=== PATIENT | female | born 1995 | race Caucasian/White ===

== ENCOUNTER 2018-05-17 15:59 | Outpatient (CLI) | END 2018-05-17 16:00 | disposition home or self-care (01) | LOC: RHC-LAB 15:59 | PROVIDERS: ATTEND Nurse Practitioner Family | DX: J02.9 Acute pharyngitis, unspecified (principal) | CPT/HCPCS: 87651 ==

== ENCOUNTER 2018-11-30 11:27 | Emergency (ER) | payer OTHER ==
[2018-11-30 11:31] VITALS: BP 148/87; TEMP 98.7; BMI 40.4
--- NOTE | 2018-11-30 11:54 | ED.PDOC ---
General ED Provider: Dr. ROSANNA TRIPP Chief Complaint: Eye Problem Stated Complaint: face rash, hand rash Time Seen by Physician: 11:33 (see photos exposed to poision osiris) Mode of Arrival: Walk-In Information Source: Patient Exam Limitations: No limitations Nursing and Triage Documentation Reviewed and Agree: Yes Does patient meet sepsis criteria?: No System Inflammatory Response Syndrome: Not Applicable Sepsis Protocol: For patient's 13 years and over: Temp is 96.8 and below OR 101 and greater Pulse >90 BPM Resp >20/minute Acutely Altered Mental Status Are patient's symptoms suggestive of a new infection, such as: -Pneumonia -Skin, Soft Tissue -Endocarditis -UTI -Bone, Joint Infection -Implantable Device -Acute Abdominal Infection -Wound Infection -Meningitis -Blood Stream Catheter Infection -Unknown Skin Complaint Exam - Skin Rash/Itching Complaint/Exam Onset/Duration: facial rash edema and rash bilateral hand after exposure to poision osiris Symptoms Are: Still present Initial Severity: Mild Location: seephotos Potential Exposures: Reports: Plants Prior Treatment: benadryl at home Aggravating: Reports: None Alleviating: Reports: None Associated Signs and Symptoms: Denies: Difficulty breathing, Fever, Chills Skin Findings: Present: Maculae Differential Diagnoses: Allergic Reaction, Contact Dermatitis, Poison Osiris/[place] Review of Systems - Review Of Systems Constitutional: Reports: No symptoms Eyes: Reports: No symptoms Ears, Nose, Mouth, Throat: Reports: No symptoms Respiratory: Reports: No symptoms Cardiac: Reports: No symptoms GI: Reports: No symptoms : Reports: No symptoms Musculoskeletal: Reports: No symptoms Skin: Reports: Rash (face hand see photos) Neurological: Reports: No symptoms Endocrine: Reports: No symptoms Hematologic/Lymphatic: Reports: No symptoms All Other Systems: Reviewed and Negative Past Medical History - Past Medical History Previously Healthy: Yes Endocrine: Reports: None Cardiovascular: Reports: None Respiratory: Reports: None Hematological: Reports: None Gastrointestinal: Reports: None Genitourinary: Reports: None Neuro/Psych: Reports: None Musculoskeletal: Reports: None Cancer: Reports: None Last Menstrual Period: 2 weeks ago - Surgical History General Surgical History: Reports: None - Family History Family History: Reports: None - Social History Smoking Status: Current every day smoker Hx Substance Use: No Alcohol Screening: None Physical Exam - Physical Exam Appearance: Well-appearing, No pain distress, Well-nourished Eyes: SHREE, EOMI, Conjunctiva clear ENT: Ears normal, Nose normal, Oropharynx normal Respiratory: Airway patent, Breath sounds clear, Breath sounds equal, Respirations nonlabored Cardiovascular: RRR, Pulses normal, No rub, No murmur GI/: Soft, Nontender, No masses, Bowel sounds normal, No Organomegaly Musculoskeletal: Normal strength, ROM intact, No edema, No calf tenderness Skin: Warm, Dry (rash bilateral hands and face ) Neurological: Sensation intact, Motor intact, Reflexes intact, Cranial nerves intact, Alert, Oriented Psychiatric: Affect appropriate, Mood appropriate Critical Care Note - Critical Care Note Total Time (mins): 0 Course - Course Vital Signs: Temp Pulse Resp BP Pulse Ox 11/30/18 11:27 98.7 F 80 20 148/87 H 98 Departure - Departure Time of Disposition: 11:54 Disposition: HOME SELF-CARE Discharge Problem: Poison osiris dermatitis Instructions: Poison Osiris (ED) Condition: Good Pt referred to PMD for follow-up: Yes IPMP verified?: No Additional Instructions: Please call your Family Physician as soon as possible to schedule a follow-up appointment. Allergies/Adverse Reactions: Allergies cefaclor [From Ceclor] Allergy (Verified 11/30/18 11:31) latex Allergy (Verified 11/30/18 11:31) Swelling bee sting Allergy (Uncoded 05/17/18 13:47) Home Medications: Ambulatory Orders Sertraline HCl [Zoloft] 50 mg PO DAILY 05/17/18 Desogestrel-Ethinyl Estradiol [Enskyce 28 Tablet] 1 each PO DAILY 11/30/18
[2018-11-30] MEDS ORDERED: BENADRYL IM STA (11:55)
[2018-11-30] MEDS ORDERED: DECADRON 4 MG/ML SDV IM STA (11:55)
== END 2018-11-30 12:29 | disposition home or self-care (01) ==
LOC: ED 11:27
DX: L23.7 Allergic contact dermatitis due to plants, except food (principal); F17.210 Nicotine dependence, cigarettes, uncomplicated
CPT/HCPCS: 96372; 99282